=== PATIENT | female | born 1955 | race Caucasian/White ===

== ENCOUNTER → 2016-09-18 | Outpatient (CLI) | payer BC ==
[~2016-09-18] MED LIST: ACET-1311 PO; AMLO-114 PO; ARTISOL12 OP; CALC200T PO; CHOL200010 PO; DIVA500T3 PO; DLCS PR; HALO0.5T9 PO; LEVO50TA PO; LORA-741 PO; LORA10TA6 PO; MAGN400T6 PO; MOML PO; NITR-5 PO; NUTR1LIQ52 PO; POTA1CAP2 PO; PRVDB DT; SENN-65 PO; SERT1TAB71 PO; SODIENE PR; SRQ/100 PO; TRAZ50TA35 PO
[2016-09-18 11:05] LABS: AST/SGOT 7 U/L (15-37); BLOOD UREA NITROGEN 12 mg/dl (7-18); BUN/CREATININE RATIO 18.7 (10-20); CALCIUM 8.3 mg/dl (8.5-10.1); CARBON DIOXIDE 29 mmol/L (21-32); CHLORIDE 103 mmol/L (98-107); CREATININE 0.66 mg/dl (0.60-1.20); GLUCOSE 82 mg/dl (70-99); POTASSIUM 3.7 mmol/L (3.5-5.1); SODIUM 141 mmol/L (136-145)
[2016-09-18 11:17] LABS: ALB/GLOB RATIO 0.8 (0.9-2); ALKALINE PHOSPHATASE 73 U/L (45-117); ALT/SGPT 16 U/L (12-78)
== END | disposition home or self-care (01) ==
LOC: C.LABUPHEI 10:42
PROVIDERS: ATTEND Family Medicine
DX: I15.8 Other secondary hypertension (principal); E55.9 Vitamin D deficiency, unspecified; F31.9 Bipolar disorder, unspecified; E03.9 Hypothyroidism, unspecified

== ENCOUNTER → 2016-09-22 | Outpatient (CLI) | payer BC ==
[~2016-09-22] MED LIST changes: +LORA10TA5 PO; -LORA10TA6 PO
== END | disposition home or self-care (01) ==
LOC: C.LABUPHEI 09:09
PROVIDERS: ATTEND Family Medicine
DX: E87.6 Hypokalemia (principal)

== ENCOUNTER → 2016-10-06 | Outpatient (CLI) | payer BC ==
[2016-10-06 10:21] LABS: ALB/GLOB RATIO 0.9 (0.9-2); ALKALINE PHOSPHATASE 55 U/L (45-117); ALT/SGPT 11 U/L (12-78); AST/SGOT 9 U/L (15-37); BLOOD UREA NITROGEN 15 mg/dl (7-18); BUN/CREATININE RATIO 23.7 (10-20); CALCIUM 8.8 mg/dl (8.5-10.1); CARBON DIOXIDE 25 mmol/L (21-32); CHLORIDE 106 mmol/L (98-107); CREATININE 0.65 mg/dl (0.60-1.20); GLUCOSE 95 mg/dl (70-99); POTASSIUM 3.5 mmol/L (3.5-5.1); SODIUM 143 mmol/L (136-145)
== END ==
LOC: C.LABUPHEI 08:50
PROVIDERS: ATTEND Family Medicine
DX: G93.40 Encephalopathy, unspecified (principal); E03.9 Hypothyroidism, unspecified

== ENCOUNTER → 2016-10-31 | Outpatient (CLI) | payer BC ==
[2016-10-31 09:18] LABS: BASO % 0.2 %; BASO ABS # 0.02 K/uL (0-0.2); COMPLETE YES; EOS % 2.1 %; HEMATOCRIT 39.2 % (37-47); IG% 0.1 %; LYMPH ABS # 1.18 K/uL (1.2-3.4); MEAN CELL VOLUME 96.1 fL (80-100); MEAN CORPUSCULAR HEMOGLOBIN 32.1 pg (25-34); MEAN CORPUSCULAR HGB CONC 33.4 g/dl (32-36); MEAN PLATELET VOLUME 11.7 fL (7.4-10.4); MONO % 6.8 %; NEUT % 76.8 %; PLATELET COUNT 217 K/uL (130-400); RED BLOOD COUNT 4.08 M/uL (4.2-5.4); WHITE BLOOD COUNT 8.41 K/uL (4.8-10.8)
[2016-10-31 09:25] LABS: ALT/SGPT 12 U/L (12-78); AST/SGOT 10 U/L (15-37); BLOOD UREA NITROGEN 15 mg/dl (7-18); BUN/CREATININE RATIO 22.6 (10-20); CALCIUM 8.8 mg/dl (8.5-10.1); CARBON DIOXIDE 26 mmol/L (21-32); CHLORIDE 105 mmol/L (98-107); CREATININE 0.66 mg/dl (0.60-1.20); GLUCOSE 86 mg/dl (70-99); POTASSIUM 4.1 mmol/L (3.5-5.1); SODIUM 141 mmol/L (136-145)
[2016-10-31 09:28] LABS: ALB/GLOB RATIO 0.7 (0.9-2); ALKALINE PHOSPHATASE 66 U/L (45-117)
== END | disposition home or self-care (01) ==
LOC: C.LABUPHEI 08:05
PROVIDERS: ATTEND Family Medicine
DX: I15.8 Other secondary hypertension (principal); F31.9 Bipolar disorder, unspecified

== ENCOUNTER → 2016-12-01 | Outpatient (CLI) | payer BC ==
--- NOTE | 2016-12-04 08:04 | CODING QUERY MEDICAL NECESSITY ---
TREATMENT RENDERED WITHOUT A DIAGNOSIS To promote full compliance with coding requirements relating to patient care, physician participation is requested in all cases of mine superintendent uncertainty. Please assist us with providing a diagnosis/symptom for the test(s) below: A diagnosis/symptom was not documented on your Order. A valid diagnosis/symptom is required to bill all insurances. Please remember that we are unable to code a diagnosis of rule out, probable, possible, questionable, or suspected. Tests that require a diagnosis: * BRAC1/BRAC2 DIAGNOSIS: * DOS: 12/01/16 Provider Signature: Date: Thank you Therese Ward [employer] Information Management Once completed, please kindly fax back to [phone] For questions please call [phone]
--- NOTE | 2016-12-04 08:05 | CODING QUERY NO DIAGNOSIS ---
TREATMENT RENDERED WITHOUT A DIAGNOSIS To promote full compliance with coding requirements relating to patient care, physician participation is requested in all cases of desk clerk uncertainty. Please assist us with providing a diagnosis/symptom for the test(s) below: A diagnosis/symptom was not documented on your Order. A valid diagnosis/symptom is required to bill all insurances. Please remember that we are unable to code a diagnosis of rule out, probable, possible, questionable, or suspected. Tests that require a diagnosis: * BRAC1 / BRAC2 DIAGNOSIS: * DOS: 12/01/16 Provider Signature: Date: Thank you Therese Ward [employer] Information Management Once completed, please kindly fax back to [phone] For questions please call [phone]
== END | disposition home or self-care (01) ==
LOC: C.LABSPEC 15:28
PROVIDERS: ATTEND Family Medicine
DX: Z85.3 Personal history of malignant neoplasm of breast (principal)

== ENCOUNTER → 2016-12-20 | Outpatient (CLI) | payer BC ==
[2016-12-20 06:46] LABS: ALT/SGPT 14 U/L (12-78); AST/SGOT 9 U/L (15-37); BLOOD UREA NITROGEN 15 mg/dl (7-18); BUN/CREATININE RATIO 21.6 (10-20); CALCIUM 8.7 mg/dl (8.5-10.1); CARBON DIOXIDE 29 mmol/L (21-32); CHLORIDE 106 mmol/L (98-107); CREATININE 0.68 mg/dl (0.60-1.20); GLUCOSE 91 mg/dl (70-99); POTASSIUM 3.7 mmol/L (3.5-5.1); SODIUM 142 mmol/L (136-145)
[2016-12-20 06:49] LABS: ALB/GLOB RATIO 0.8 (0.9-2); ALKALINE PHOSPHATASE 64 U/L (45-117)
== END ==
LOC: C.LABUPHEI 11:17
PROVIDERS: ATTEND Family Medicine
DX: M62.81 Muscle weakness (generalized) (principal)

== ENCOUNTER → 2017-01-14 | Outpatient (CLI) | payer BC ==
[2017-01-14 08:47] LABS: BASO % 0.5 %; BASO ABS # 0.02 K/uL (0-0.2); COMPLETE YES; EOS % 2.8 %; HEMATOCRIT 38.7 % (37-47); IG% 0.2 %; LYMPH ABS # 1.31 K/uL (1.2-3.4); MEAN CELL VOLUME 95.6 fL (80-100); MEAN CORPUSCULAR HEMOGLOBIN 31.9 pg (25-34); MEAN CORPUSCULAR HGB CONC 33.3 g/dl (32-36); MEAN PLATELET VOLUME 11.4 fL (7.4-10.4); MONO % 11.8 %; NEUT % 53.7 %; PLATELET COUNT 196 K/uL (130-400); RED BLOOD COUNT 4.05 M/uL (4.2-5.4); WHITE BLOOD COUNT 4.23 K/uL (4.8-10.8)
[2017-01-14 08:57] LABS: ALB/GLOB RATIO 0.7 (0.9-2); ALKALINE PHOSPHATASE 64 U/L (45-117); ALT/SGPT 20 U/L (12-78); AST/SGOT 12 U/L (15-37); BLOOD UREA NITROGEN 13 mg/dl (7-18); BUN/CREATININE RATIO 19.5 (10-20); CARBON DIOXIDE 27 mmol/L (21-32); CHLORIDE 105 mmol/L (98-107); CREATININE 0.64 mg/dl (0.60-1.20); GLUCOSE 89 mg/dl (70-99); POTASSIUM 3.5 mmol/L (3.5-5.1); SODIUM 141 mmol/L (136-145)
[2017-01-14 09:27] LABS: CALCIUM 8.7 mg/dl (8.5-10.1)
== END | disposition home or self-care (01) ==
LOC: C.LABUPHEI 08:18
PROVIDERS: ATTEND Nurse Practitioner Family
DX: F31.9 Bipolar disorder, unspecified (principal); E55.9 Vitamin D deficiency, unspecified; M62.81 Muscle weakness (generalized); I15.8 Other secondary hypertension

== ENCOUNTER → 2017-02-14 | Outpatient (CLI) | payer BC ==
[2017-02-14 06:17] LABS: ALT/SGPT 23 U/L (12-78); AST/SGOT 18 U/L (15-37); BLOOD UREA NITROGEN 14 mg/dl (7-18); BUN/CREATININE RATIO 19.7 (10-20); CALCIUM 8.3 mg/dl (8.5-10.1); CARBON DIOXIDE 33 mmol/L (21-32); CHLORIDE 107 mmol/L (98-107); CREATININE 0.69 mg/dl (0.60-1.20); GLUCOSE 73 mg/dl (70-99); POTASSIUM 3.9 mmol/L (3.5-5.1); SODIUM 144 mmol/L (136-145)
[2017-02-14 06:20] LABS: ALB/GLOB RATIO 0.7 (0.9-2); ALKALINE PHOSPHATASE 67 U/L (45-117)
== END ==
LOC: C.LABUPHEI 09:34
PROVIDERS: ATTEND Family Medicine
DX: F31.9 Bipolar disorder, unspecified (principal); M62.81 Muscle weakness (generalized)

== ENCOUNTER 2017-02-21 16:46 | Emergency (ER) | payer BC ==
[~2017-02-21] VITALS: Ht 175.3 cm; Wt 76.5 kg
[~2017-02-21 16:46] MED LIST changes: -AMLO-114 PO; -ARTISOL12 OP; -CHOL200010 PO; -DIVA500T3 PO; -LORA-741 PO; -SODIENE PR
[2017-02-21 16:51] VITALS: Ht 175.3 cm; Wt 76.5 kg
[2017-02-21] MEDS ORDERED: AMLO-114 PO (17:00)
[2017-02-21] MEDS ORDERED: LORA-741 PO (17:00)
[2017-02-21] MEDS ORDERED: ARTISOL12 OP (17:00)
[2017-02-21] MEDS ORDERED: SODIENE PR (17:00)
[2017-02-21] MEDS ORDERED: DIVA500T3 PO (17:00)
[2017-02-21] MEDS ORDERED: CHOL200010 PO (17:00)
--- NOTE | 2017-02-21 17:03 | EMERGENCY ROOM VISIT NOTE ---
History Report prepared by Lizeth: Carlos Manuel Lopez Under the Supervision of: Dr. Yoshi Valdez M.D. First contact with patient: 16:47 Stated Complaint: LETHARGIC/SEPSIS History of Present Illness The patient is a 61 year old female who presents to the Emergency Room via EMS from [facility] for concerns about altered mental status occurring today. As per EMS report, the [facility] staff was concerned about the patient being lethargic, diaphoretic, and septic. She also had a vomiting episode. No nursing report was given when patient was sent here. The patient denies any confusion. She currently denies any pain. She denies fevers, chills, chest pain, shortness of breath, nausea, vomiting, abdominal pain, or any other complaints. She does not have a history of UTI. She has a history of bipolar, dementia, encephalopathy, and prolonged QTC. As per Angy Weston, patient's primary caregiver, Angy Weston is allowed to make medical decisions since the patient's sister is out of town. Her sister would want lab work up done. If normal, she can go home. Angy Weston also reported that the patient ate much more food than normal prior to vomiting it up. Source of History: patient, EMS Onset: today Position: other (global) Symptom Intensity: No pain currently Quality: other (altered mental status) Associated Symptoms: No fevers, No chills, No chest pain, No SOB, No nausea , No vomiting, No abdominal pain Review of Systems See HPI for pertinent positives & negatives. A total of 10 systems reviewed and were otherwise negative. Past Medical & Surgical Medical Problems: (1) Anoxic brain injury (2) Bipolar disorder (3) Gait disorder (4) History of breast cancer (5) History of cardiac arrest (6) History of MRSA infection (7) History of prolonged Q-T interval on ECG (8) Hypothyroidism (9) Mucous Polyp Of Cervix (10) Osteoporosis Surgical Problems: (1) Status post cholecystectomy Family History Patient reports no known family medical history. Social History Smoking Status: Never Smoker Alcohol Use: none Drug Use: none Housing Status: jail Occupation Status: disabled Current/Historical Medications Scheduled Amlodipine (Norvasc), 10 MG PO DAILY Artificial Tear Solution (Artificial Tears), 2 DROPS OP BID Calcium Carbonate-Vitamin D (Oscal 500/200 D-3), 1 TAB PO BID Cholecalciferol (Vitamin D), 2,000 UNITS PO DAILY Divalproex Sodium (Depakote Er), 1 TAB PO BID Levothyroxine Sodium (Synthroid), 50 MCG PO DAILY Magnesium Oxide (Mag-Ox), 400 MG PO BID Potassium Chloride (Potassium Chloride Er), 2 CAP PO BID Quetiapine Fumarate (Seroquel), 100 MG PO HS Senna/Docusate Sod (Senokot S), 3 TABS PO BID Sodium Fluoride (Prevident 5000 Booster), 1 DOSE DT HS Scheduled PRN Acetaminophen (Tylenol), 650 MG PO Q4 PRN for Pain or Fever Bisacodyl (Bisac-Evac), [address] DAILY PRN for Constipation Lorazepam (Ativan), 0.5 MG PO BID PRN for ACTING OUT Magnesium Hydroxide (Milk Of Magnesia), 30 ML PO DAILY PRN for NO BM X 9 SHIFTS Allergies Coded Allergies: Amoxicillin (Verified Allergy, Intermediate, rash, 01/25/14) Gluten (Verified Allergy, Unknown, UNKNOWN, 05/18/13) Quinolones (Verified Allergy, Unknown, UNKNOWN, 05/18/13) Physical Exam Vital Signs Date Time Temp Pulse Resp B/P (MAP) Pulse Ox O2 Delivery O2 Flow Rate FiO2 02/21/17 16:53 66 02/21/17 16:51 36.5 65 14 117/82 96 Room Air Physical Exam GENERAL: Patient is nonverbal but clearly awake and interactive. HEENT: No acute trauma, normocephalic atraumatic, mucous membranes moist, no nasal congestion, no scleral icterus. NECK: No stridor, no adenopathy, no meningismus, trachea is midline. LUNGS: No dyspnea. Clear to auscultation and equal bilaterally. No wheeze, no rhonchi. HEART: Regular rate and rhythm. No murmurs, rubs, gallops appreciated. ABDOMEN: Soft, nontender, bowel sounds positive, no masses appreciated, no peritonitis. BACK: No midline tenderness, no CVA tenderness EXTREMITIES: Normal motion all extremities, no cyanosis, no edema. Wasting of extremities. NEUROLOGIC: Nonverbal but nods yes or no without problems, does not appear confused, no evidence of severe dementia, no acute motor or sensory deficits, no focal weakness, cranial nerves grossly intact. SKIN: No rash, no jaundice, no diaphoresis. Medical Decision & Procedures Laboratory Results 02/21/17 17:55 Red Blood Count 4.46, Mean Corpuscular Volume 96.0, Mean Corpuscular Hemoglobin 32.1, Mean Corpuscular Hemoglobin Concent 33.4, Mean Platelet Volume 11.1, Neutrophils (%) (Auto) 85.1, Lymphocytes (%) (Auto) 8.2, Monocytes (%) (Auto) 6.1, Eosinophils (%) (Auto) 0.2, Basophils (%) (Auto) 0.1, Neutrophils # (Auto) 9.17, Lymphocytes # (Auto) 0.88, Monocytes # (Auto) 0.66, Eosinophils # (Auto) 0.02, Basophils # (Auto) 0.01 02/21/17 17:55 Test 02/21/17 17:55 White Blood Count 10.77 K/uL (4.8-10.8) Red Blood Count 4.46 M/uL (4.2-5.4) Hemoglobin 14.3 g/dL (12.0-16.0) Hematocrit 42.8 % (37-47) Mean Corpuscular Volume 96.0 fL (80-100) Mean Corpuscular Hemoglobin 32.1 pg (25-34) Mean Corpuscular Hemoglobin Concent 33.4 g/dl (32-36) Platelet Count 161 K/uL (130-400) Mean Platelet Volume 11.1 fL (7.4-10.4) Neutrophils (%) (Auto) 85.1 % Lymphocytes (%) (Auto) 8.2 % Monocytes (%) (Auto) 6.1 % Eosinophils (%) (Auto) 0.2 % Basophils (%) (Auto) 0.1 % Neutrophils # (Auto) 9.17 K/uL (1.4-6.5) Lymphocytes # (Auto) 0.88 K/uL (1.2-3.4) Monocytes # (Auto) 0.66 K/uL (0.11-0.59) Eosinophils # (Auto) 0.02 K/uL (0-0.5) Basophils # (Auto) 0.01 K/uL (0-0.2) RDW Standard Deviation 46.2 fL (36.4-46.3) RDW Coefficient of Variation 13.1 % (11.5-14.5) Immature Granulocyte % (Auto) 0.3 % Immature Granulocyte # (Auto) 0.03 K/uL (0.00-0.02) Anion Gap 10.0 mmol/L (3-11) Est Creatinine Clear Calc Drug Dose 89.4 ml/min Estimated GFR () 109.1 Estimated GFR (Non- 94.2 BUN/Creatinine Ratio 25.9 (10-20) Calcium Level 8.2 mg/dl (8.5-10.1) Total Bilirubin 0.4 mg/dl (0.2-1) Aspartate Amino Transf (AST/SGOT) 11 U/L (15-37) Alanine Aminotransferase (ALT/SGPT) 16 U/L (12-78) Alkaline Phosphatase 65 U/L (45-117) Troponin I < 0.015 ng/ml (0-0.045) Total Protein 7.5 gm/dl (6.4-8.2) Albumin 3.2 gm/dl (3.4-5.0) Globulin 4.3 gm/dl (2.5-4.0) Albumin/Globulin Ratio 0.7 (0.9-2) Lipase 90 U/L (73-393) Valproic Acid (Depakene) Level 43 mcg/ml (50-100) Laboratory results as reviewed by me. ECG Indication: altered mental status Rate (beats per minute): 64 Rhythm: normal sinus Findings: no acute ischemic change, no ectopy ED Course 1647: The patient was evaluated in room C09. A complete history and physical exam was performed. The patient is refusing labs, IVs, or x-rays. She has a DNR paperwork on file. 1713: I discussed the patient's case with Angy Weston, patient's primary caregiver at [facility]. 1725: I reevaluated the patient. She had a vomiting episode. Medical Decision Differential: Toxicological, Infectious, Stroke, SAH, Trauma, Electrolyte Abnormality, Hypoglycemia, Alcohol Intoxication, Drug Intoxication, Cardiac Abnormality, Sepsis, Meningitis/Encephalitis, Trauma, Excited Delirium, Serotonin Syndrome, Psychiatric, amongst other pathologies entertained. Medication Reconciliation: I attest that I have personally reviewed the patient 's current medication list. 61 yr old female from [facility] for evaluation of altered mental status and vomiting. Talking to Angy Weston her caregiver (who notes she is acting POA while sister is out of town) notes that patient's description is at her baseline. However while patient forms state DNR/Comfort measures, she does feel that patient should have labs/imaging done. This was explained to patient and she agrees. She has history of anoxic brain injury secondary to prolonged cardiac arrest and Angy Weston notes inability to make decisions for herself. Does note periodically verbal but usually just nodes yes/no. Furthermore, patient had very large lunch prior to vomiting. KUB and CXR is unremarkable. Labs look good. Exam benign with no acute findings and soft/non-tender abdomen. Mild low Depakote though may be normal for her. Discussed again with POA who is aware (BlaireTrista Tanner [phone]) who understands patient refuses UA and that CT would be unobtainable/unreasonable at this time. Consults Time Called: 1651 Consulting Physician: Angy Weston, patient's primary caregiver at [facility] Returned Call: [phone] I discussed the patient's case with Angy Weston, patient's primary caregiver at [facility]. Impression Primary Impression: Vomiting Scribe Attestation The scribe's documentation has been prepared under my direction and personally reviewed by me in its entirety. I confirm that the note above accurately reflects all work, treatment, procedures, and medical decision making performed by me. Departure Information Dispostion Home / Self-Care Referrals Dana Mann (PCP) Additional Instructions Extensive Laboratory Testing was done without any acute findings. Depakote Level was just below Normal, though this may be her regular range. Patient refused to have Urinalysis. Chest Xray and Abdominal Xray was unremarkable. Blood Counts, Renal Function and Electrolytes were normal. No medications were given nor started. Patient should be monitored for worsening symptoms or other concerns. With vomiting she should remain on light diet until no further vomiting. If worsening vomiting, altered mental status, fevers, or other concerns, we are here to help. It is very important her Physician Further discuss with Economic Development Coordinator/POA patient' s actual code status, as it seems different on paper than with discussion.
[2017-02-21 18:02] LABS: BASO % 0.1 %; BASO ABS # 0.01 K/uL (0-0.2); COMPLETE YES; EOS % 0.2 %; HEMATOCRIT 42.8 % (37-47); IG% 0.3 %; LYMPH % 8.2 %; LYMPH ABS # 0.88 K/uL (1.2-3.4); MEAN CORPUSCULAR HEMOGLOBIN 32.1 pg (25-34); MEAN CORPUSCULAR HGB CONC 33.4 g/dl (32-36); MEAN PLATELET VOLUME 11.1 fL (7.4-10.4); MONO % 6.1 %; NEUT % 85.1 %; PLATELET COUNT 161 K/uL (130-400); RED BLOOD COUNT 4.46 M/uL (4.2-5.4); WHITE BLOOD COUNT 10.77 K/uL (4.8-10.8)
[2017-02-21 18:21] LABS: ALT/SGPT 16 U/L (12-78); AST/SGOT 11 U/L (15-37); BLOOD UREA NITROGEN 18 mg/dl (7-18); BUN/CREATININE RATIO 25.9 (10-20); CALCIUM 8.2 mg/dl (8.5-10.1); CARBON DIOXIDE 27 mmol/L (21-32); CHLORIDE 106 mmol/L (98-107); GLUCOSE 144 mg/dl (70-99); SODIUM 143 mmol/L (136-145)
[2017-02-21 18:26] LABS: ALB/GLOB RATIO 0.7 (0.9-2); ALKALINE PHOSPHATASE 65 U/L (45-117)
--- NOTE | 2017-02-21 18:30 | DIAGNOSTIC IMAGING REPORT ---
KUB CLINICAL HISTORY: Vomiting. COMPARISON STUDY: CT of the abdomen and pelvis January 28, 2014. FINDINGS: Incidental note is made of left axillary and cholecystectomy clips. A bone island within the right femoral head is incidentally noted. The bowel gas pattern is normal. There is a [id number]-[id number] amount of stool within the colon. IMPRESSION: No evidence of a bowel obstruction. Electronically signed by: Elfego Warner M.D. 02/21/2017 6:28 PM Dictated Date/Time: 02/21/2017 6:28 PM
--- NOTE | 2017-02-21 18:53 | DIAGNOSTIC IMAGING REPORT ---
CHEST ONE VIEW PORTABLE CLINICAL HISTORY: Reported altered mental status COMPARISON STUDY: Chest radiograph September 13, 2015. FINDINGS: There are left axillary surgical clips. There is no pneumothorax or pleural effusion. Cardiac size is normal. Mediastinal contours are normal. There is no evidence of pulmonary edema. Note is made of a 1.5 cm irregular left lower lung opacity. IMPRESSION: 1. 1.5 cm irregular left lower lung opacity. This could reflect atelectasis, minimal airspace disease or a pulmonary nodule. Follow-up PA and lateral chest radiographs in one month are recommended. 2. No evidence of pulmonary edema. No lobar consolidation. Electronically signed by: Elfego Warner M.D. 02/21/2017 6:52 PM Dictated Date/Time: 02/21/2017 6:50 PM
[2017-02-21 20:30] VITALS: BP 111/57; PULSE 66; TEMP 36.5; O2SAT 96
== END 2017-02-21 20:30 | disposition home or self-care (01) ==
LOC: EDBD 16:46 → C.EDC 16:47
DX: R11.10 Vomiting, unspecified (principal); E03.9 Hypothyroidism, unspecified; F31.9 Bipolar disorder, unspecified; Z86.14 Personal history of Methicillin resistant Staphylococcus aureus infection; M81.0 Age-related osteoporosis without current pathological fracture; Z85.3 Personal history of malignant neoplasm of breast; Z87.820 Personal history of traumatic brain injury; Z90.49 Acquired absence of other specified parts of digestive tract; Z79.899 Other long term (current) drug therapy; Z88.1 Allergy status to other antibiotic agents; Z88.8 Allergy status to other drugs, medicaments and biological substances

== ENCOUNTER → 2017-03-13 | Outpatient (CLI) | payer BC ==
[~2017-03-13] MED LIST changes: +AMLO-114 PO; +ARTISOL12 OP; +CHOL200010 PO; +DIVA500T3 PO; -HALO0.5T9 PO; +LORA-741 PO; -LORA10TA5 PO; -NITR-5 PO; -NUTR1LIQ52 PO; -SERT1TAB71 PO; -TRAZ50TA35 PO
--- NOTE | 2017-03-16 12:37 | MAMMOGRAPHY REPORT ---
BILATERAL DIGITAL SCREENING MAMMOGRAM TOMOSYNTHESIS WITH CAD: 03/13/2017 CLINICAL HISTORY: Asymptomatic. Personal history of breast cancer. TECHNIQUE: Breast tomosynthesis in addition to standard 2D mammography was performed. Current study was also evaluated with a Computer Aided Detection (CAD) system. COMPARISON: Comparison is made to exams dated: 09/03/2010 mammogram - [facility], 02/20/2009, and 03/04/2013 mammogram - [facility]. BREAST COMPOSITION: The tissue of both breasts is heterogeneously dense, which may obscure small mas ses. FINDINGS: No suspicious masses, calcifications, or areas of architectural distortion are noted in ei ther breast. There has been no significant interval change compared to prior exams. There are stable postsurgical changes including architectural distortion in the left superior breast from prior lumpe ctomy; a linear scar marker denotes a scar on the left 12:00 breast. Note that the images are somewh at suboptimal due to difficulties with patient positioning as she is wheelchair-bound and had to be h eld for all views and has bilateral frozen shoulders; the MLO views in particular are suboptimal, wit h the pectoralis muscles not well-visualized on the exam. IMPRESSION: ACR BI-RADS CATEGORY 2: BENIGN There is no mammographic evidence of malignancy. A 1 year screening mammogram is recommended. The pa tient will receive written notification of the results. Approximately 10% of breast cancers are not detected with mammography. A negative mammographic report should not delay biopsy if a clinically suggestive mass is present. Usha Jimenez M.D. ah/:03/13/2017 15:58:56 Amphibian Crewmember: Ebonie JAMA(Fernando)(Yesy), [facility] letter sent: Normal 1/2 BI-RADS Code: ACR BI-RADS Category 2: Benign
== END | disposition home or self-care (01) ==
LOC: C.MAMM 13:11
PROVIDERS: ATTEND Family Medicine
DX: Z12.31 Encounter for screening mammogram for malignant neoplasm of breast (principal)

== ENCOUNTER → 2017-03-18 | Outpatient (CLI) | payer BC ==
[2017-03-18 09:22] LABS: BASO % 0.2 %; BASO ABS # 0.01 K/uL (0-0.2); COMPLETE YES; EOS % 2.5 %; HEMATOCRIT 40.8 % (37-47); LYMPH % 26.7 %; LYMPH ABS # 1.41 K/uL (1.2-3.4); MEAN CELL VOLUME 97.1 fL (80-100); MEAN CORPUSCULAR HEMOGLOBIN 31.2 pg (25-34); MEAN CORPUSCULAR HGB CONC 32.1 g/dl (32-36); MEAN PLATELET VOLUME 11.8 fL (7.4-10.4); MONO % 8.9 %; NEUT % 61.7 %; PLATELET COUNT 164 K/uL (130-400); WHITE BLOOD COUNT 5.28 K/uL (4.8-10.8)
[2017-03-18 09:45] LABS: THYROID STIMULATING HORMONE 3.93 uIu/ml (0.300-4.500)
--- NOTE | 2017-05-13 06:24 | CODING QUERY NO DIAGNOSIS ---
TREATMENT RENDERED WITHOUT A DIAGNOSIS To promote full compliance with coding requirements relating to patient care, physician participation is requested in all cases of geophysical drafter uncertainty. Please assist us with providing a diagnosis/symptom for the test(s) below: A diagnosis/symptom was not documented on your Order. A valid diagnosis/symptom is required to bill all insurances. Please remember that we are unable to code a diagnosis of rule out, probable, possible, questionable, or suspected. Tests that require a diagnosis: * CBC W AUTO DIFF DIAGNOSIS: * T4 DIAGNOSIS: * TSH DIAGNOSIS: Provider Signature: Date: Thank you Allison [employer] Information Management Once completed, please kindly fax back to [phone] For questions please call [phone]
== END | disposition home or self-care (01) ==
LOC: C.LABUPHEI 05:40
PROVIDERS: ATTEND Family Medicine
DX: Z01.89 Encounter for other specified special examinations (principal)